=== PATIENT | female | born 1990 | race Two or more races ===

== ENCOUNTER 2019-03-03 04:06 | Emergency (ER) | payer SELFPAY ==
[~2019-03-03] VITALS: Ht 167.6 cm; Wt 79.8 kg
--- NOTE | 2019-03-03 04:47 | PHYS DOC ---
Adult General Chief Complaint Chief Complaint: ABDOMINAL PAIN HPI HPI Patient is a 28 year old [place]ian-speaking female. 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 Patient reports progressive epigastric abdominal pain with nausea and vomiting since last night. Denies any previous episodes. Pain is constant, sharp, 78 out of 10, no GI bleed symptoms. No diarrhea. No constipation. No fever. (ZACHARY NUÑEZ DO) Review of Systems Review of Systems Constitutional: Denies fever or chills [] Eyes: Denies change in visual acuity, redness, or eye pain [] HENT: Denies nasal congestion or sore throat [] Respiratory: Denies cough or shortness of breath [] Cardiovascular: No chest pain, no palpitations, GI: per HPI : Denies dysuria or hematuria [] Musculoskeletal: Denies back pain or joint pain [] Integument: Denies rash or skin lesions [] Neurologic: Denies headache, focal weakness or sensory changes [] Endocrine: Denies polyuria or polydipsia [] All other systems were reviewed and found to be within normal limits, except as documented in this note. (ZACHARY NUÑEZ DO) Current Medications Current Medications Current Medications Medications (Trade) Dose Ordered Sig/Gil Start Time Stop Time Status Last Admin Dose Admin Morphine Sulfate (Morphine Sulfate) 4 mg 1X ONCE 03/03/19 05:30 03/03/19 05:31 DC 03/03/19 05:07 4 MG Ondansetron HCl (Zofran) 8 mg 1X ONCE 03/03/19 05:30 03/03/19 05:31 DC 03/03/19 05:08 8 MG Sodium Chloride 1,000 ml @ 1,000 mls/hr 1X ONCE 03/03/19 05:30 03/03/19 06:29 DC 03/03/19 05:07 1,000 MLS/HR (JOAN CANSECO MD) Allergies Allergies Allergies Coded Allergies Type Severity Reaction Last Updated Verified No Known Drug Allergies 03/03/19 No (JOAN CANSECO MD) Physical Exam Physical Exam Constitutional: Well developed, well nourished, moderate distress HENT: Normocephalic, atraumatic, Eyes: PERRLA, EOMI, Neck: Normal range of motion, no tenderness, supple, no stridor. [] Cardiovascular:Heart rate regular rhythm, no murmur [] Lungs & Thorax: Bilateral breath sounds clear to auscultation [] Abdomen: Bowel sounds normal, soft, moderate epigastric tenderness, no right upper quadrant tenderness, no guarding, no rebound tenderness. Skin: Warm, dry, no erythema, no rash. [] Back: No tenderness, no CVA tenderness. [] Extremities: No tenderness, no cyanosis, no clubbing, ROM intact, no edema. [] Neurologic: Alert and oriented X 3, no focal deficits noted. [] Psychologic: Affect normal, judgement normal, mood normal. [] (ZACHARY NUÑEZ DO) Current Patient Data Vital Signs Vital Signs Date Time Temp Pulse Resp B/P (MAP) Pulse Ox O2 Delivery O2 Flow Rate FiO2 03/03/19 06:02 45 124/74 (91) 98 Room Air 03/03/19 04:20 98.9 17 98.9 (JOAN CANSECO MD) Lab Values Laboratory Tests Test 03/03/19 04:40 03/03/19 04:50 POC Urine HCG, Qualitative Hcg negative (Negative) White Blood Count 11.2 x10^3/uL (4.0-11.0) H Red Blood Count 4.10 x10^6/uL (3.50-5.40) Hemoglobin 11.8 g/dL (12.0-15.5) L Hematocrit 35.8 % (36.0-47.0) L Mean Corpuscular Volume 87 fL (79-100) Mean Corpuscular Hemoglobin 29 pg (25-35) Mean Corpuscular Hemoglobin Concent 33 g/dL (31-37) Red Cell Distribution Width 15.5 % (11.5-14.5) H Platelet Count 155 x10^3/uL (140-400) Neutrophils (%) (Auto) 87 % (31-73) H Lymphocytes (%) (Auto) 9 % (24-48) L Monocytes (%) (Auto) 4 % (0-9) Eosinophils (%) (Auto) 0 % (0-3) Basophils (%) (Auto) 0 % (0-3) Neutrophils # (Auto) 9.7 x10^3uL (1.8-7.7) H Lymphocytes # (Auto) 1.0 x10^3/uL (1.0-4.8) Monocytes # (Auto) 0.4 x10^3/uL (0.0-1.1) Eosinophils # (Auto) 0.0 x10^3/uL (0.0-0.7) Basophils # (Auto) 0.0 x10^3/uL (0.0-0.2) Platelet Estimate Pending Sodium Level 139 mmol/L (136-145) Potassium Level 3.4 mmol/L (3.5-5.1) L Chloride Level 104 mmol/L (98-107) Carbon Dioxide Level 25 mmol/L (21-32) Anion Gap 10 (6-14) Blood Urea Nitrogen 15 mg/dL (7-20) Creatinine 0.6 mg/dL (0.6-1.0) Estimated GFR (Cockcroft-Gault) 119.0 BUN/Creatinine Ratio 25 (6-20) H Glucose Level 124 mg/dL (70-99) H Calcium Level 8.8 mg/dL (8.5-10.1) Total Bilirubin 0.6 mg/dL (0.2-1.0) Aspartate Amino Transferase (AST) 19 U/L (15-37) Alanine Aminotransferase (ALT) 33 U/L (14-59) Alkaline Phosphatase 127 U/L (46-116) H Total Protein 7.9 g/dL (6.4-8.2) Albumin 4.0 g/dL (3.4-5.0) Albumin/Globulin Ratio 1.0 (1.0-1.7) Lipase 79 U/L (73-393) Laboratory Tests 03/03/19 04:50 Laboratory Tests 03/03/19 04:50 (JOAN CANSECO MD) EKG EKG [] (ZACHAYR NUÑEZ DO) Radiology/Procedures Radiology/Procedures GB US IMPRESSION: 1. Mild hepatomegaly. 2. No evidence of gallbladder disease. Electronically signed by: Sanya Mathis MD (03/03/2019 6:33 AM) [facility] (ZACHARY NUÑEZ DO) Course & Med Decision Making Course & Med Decision Making Pertinent Labs and Imaging studies reviewed. (See chart for details) 0630: LOULOU to Dr. Canseco pending completion of ED evaluation. Pt hemodynamically stable, improved. no acute findings on labs/GB US. Dispo pending symptom control. (ZACHARY NUÑEZ DO) Course & Med Decision Making 0800: Patient tolerated by mouth challenge and was discharged home. (JOAN CANSECO MD) Dragon Disclaimer Dragon Disclaimer This electronic medical record was generated, in whole or in part, using a voice recognition dictation system. (ZACHARY NUÑEZ DO) Departure Departure Impression: Primary Impression: Abdominal pain Disposition: HOME, SELF-CARE Condition: IMPROVED Referrals: NO PCP (PCP) Patient Instructions: Abdominal Pain (Nonspecific) Additional Instructions: Thank you for coming to [facility]. Please read the attached handouts. Please follow-up with your primary care physician. Take nausea and pain medication as needed at home. Drink plenty of fluids. Advance your diet as tolerated. Return to the ER if your symptoms worsen or you have any other concerns. Scripts Ondansetron Hcl (ZOFRAN) 4 Mg Tablet 4 MG PO PRN TID PRN for naus, #15 nausea/vomiting Prov: ZACHARY NUÑEZ DO 03/03/19 Hydrocodone/Apap 5-325 (NORCO 5-325 TABLET) 1 Each Tablet 1-2 EACH PO PRN Q6HRS PRN for PAIN, #15 as needed for pain Prov: ZACHARY NUÑEZ DO 03/03/19 ZACHARY NUÑEZ DO Mar 03, 2019 04:47 JOAN CANSECO MD Mar 03, 2019 08:01
[2019-03-03 05:02] LABS: BASO % 0 % (0-3); EOS % 0 % (0-3); HEMATOCRIT 35.8 % (36.0-47.0); HEMOGLOBIN 11.8 g/dL (12.0-15.5); LYMPH % 9 % (24-48); MEAN CORPUSCULAR HEMOGLOBIN 29 pg (25-35); MEAN CORPUSCULAR HGB CONC 33 g/dL (31-37); MEAN CORPUSCULAR VOLUME 87 fL (79-100); MONO # 0.4 x10^3/uL (0.0-1.1); MONO % 4 % (0-9); NEUT # 9.7 x10^3uL (1.8-7.7); NEUT % 87 % (31-73); PLATELET COUNT 155 x10^3/uL (140-400); RED CELL DISTRIBUTION WIDTH 15.5 % (11.5-14.5); WHITE BLOOD COUNT 11.2 x10^3/uL (4.0-11.0)
[2019-03-03 05:26] LABS: CALCIUM 8.8 mg/dL (8.5-10.1); CREATININE 0.6 mg/dL (0.6-1.0); POTASSIUM 3.4 mmol/L (3.5-5.1)
[2019-03-03 05:30] LABS: TOTAL BILIRUBIN 0.6 mg/dL (0.2-1.0); TOTAL PROTEIN 7.9 g/dL (6.4-8.2)
[2019-03-03] MEDS ORDERED: MORPHINE SULFATE 4 MG/ML VIAL. IV ONE (05:30)
[2019-03-03] MEDS ORDERED: IV NORMAL SALINE 1000ML BAG 1,000 ML IV ONE (05:30)
[2019-03-03] MEDS ORDERED: ONDANSETRON PF 4 MG/2 ML VIAL. IV ONE (05:30)
--- NOTE | 2019-03-03 06:36 | RAD ---
Right upper quadrant abdominal ultrasound History: Epigastric pain. Comparison: None. Technique: Transabdominal ultrasound images are obtained. Findings: Visualized pancreas is unremarkable. Liver is normal in echogenicity. Right hepatic lobe measures 18.5 cm., Mildly enlarged Portal flow is hepatopedal. No gallbladder wall thickening. No cholelithiasis. Sonographic Griffin sign is negative. Incidental phrygian cap. Common bile duct caliber is normal measuring 3 mm in diameter. The right kidney measures 11.5 cm in length and is without evidence of obstruction or stone. IVC is unremarkable. IMPRESSION: 1. Mild hepatomegaly. 2. No evidence of gallbladder disease. Electronically signed by: Sanya Mathis MD (03/03/2019 6:33 AM) [facility]
[2019-03-03] MEDS ORDERED: HYDR-3164 PO (06:47)
[2019-03-03] MEDS ORDERED: ONDA4TAB7 PO (06:47)
[2019-03-03 08:30] VITALS: BP 109/57
[2019-03-03 10:48] LABS: % BANDS 2 % (0-9); % LYMPHS 12 % (24-48); % MONOS 3 % (0-10); % SEGS 83 % (35-66); PLT ESTIMATE ADEQUATE (ADEQUATE)
== END 2019-03-03 08:43 | disposition home or self-care (01) ==
LOC: ER 04:06
DX: R10.13 Epigastric pain (principal); R11.2 Nausea with vomiting, unspecified
CPT/HCPCS: 36415; 76705; 80053; 81025; 83690; 85007; 85025; 96361; 96374; 96375; 99285; J2270; J2405; J7030